=== PATIENT | male | born 1965 ===

== ENCOUNTER 2020-12-20 16:16 | Emergency (ER) | payer OTHER ==
[2020-12-20 17:05] VITALS: BP 146/88
[2020-12-20] MEDS ORDERED: ONDANSETRON 4 MG ODT TAB PO ONE (18:15)
[2020-12-20] MEDS ORDERED: ACETAMINOPHEN W/CODEINE 300-30 MG TAB PO ONE (18:15)
--- NOTE | 2020-12-20 18:17 | Emergency Department Report ---
ED Headache HPI - General Chief Complaint: Headache Stated Complaint: HEADACHE Time Seen by Provider: 12/20/20 17:56 Source: patient Exam Limitations: no limitations - History of Present Illness Initial Comments: 55-year-old male presents to the ER today with complaints of a headache. Patient states that he has been having a headache since around December 03. He states that the headache is mainly to the crown of his head. He states that it has been intermittent and sharp in nature. He denies any head injury. He reports mild associated nausea. He states that he has been taking Tylenol and ibuprofen which provides some relief of his headache but once the medicine wears off the headache comes back. Patient states that when he started with a headache, he also had symptoms of decreased appetite and decreased sense of taste and so he went to get a COVID-19 test around December 11. He states that he was notified on December 13 that he was COVID-19 positive. Patient states that he has been quarantining at home. He states that he still continues to have decreased appetite and decrease sense of taste but he feels like it is getting better but he states that the headache does not seem to want to go away and he is concerned. He denies any history of headaches. He denies any associated URI symptoms, cough, shortness of breath, vision changes, speech changes, focal neurological deficits, fever or chills. Patient states that the doctor who he saw the urgent care and diagnosed him with COVID-19 also started him on blood pressure medication because his blood pressure was high during the visit. He does not recall the name of the blood pressure medication that he takes. Other than the hypertension he has no other significant past history. Timing/Duration: constant, other (since December 03) Quality: moderate, constant, sharp Head Injury Location: other (crown of head ) Recent Head Trauma: no recent headache/trauma Allergies/Adverse Reactions: Allergies No Known Allergies Allergy (Unverified 12/20/20 17:05) Home Medications: Ambulatory Orders Acetaminophen/Codeine [Tylenol /Codeine # 3 tab] 1 tab PO Q4HR PRN #12 tablet 12/20/20 Ondansetron [Zofran Odt] 4 mg PO Q8HR PRN #15 tab.rapdis 12/20/20 ED Review of Systems ROS: Stated complaint: HEADACHE Other details as noted in HPI Comment: All other systems reviewed and negative Eyes: denies: eye pain, eye discharge, vision change ENT: denies: ear pain, throat pain, dental pain, hearing loss, congestion Respiratory: denies: cough, shortness of breath, wheezing Cardiovascular: denies: chest pain, palpitations Endocrine: no symptoms reported Gastrointestinal: nausea. denies: abdominal pain, vomiting, diarrhea, constipation, hematemesis Genitourinary: denies: urgency, dysuria, frequency, hematuria, discharge, testicular pain, testicular mass Musculoskeletal: denies: back pain, joint swelling, arthralgia Skin: denies: rash, lesions, change in color, change in hair/nails, pruritus, other Neurological: headache. denies: weakness, numbness, paresthesias, confusion, abnormal gait, vertigo Psychiatric: denies: anxiety, depression Hematological/Lymphatic: denies: easy bleeding, easy bruising ED Past Medical Hx - Past Medical History Previous Medical History?: No - Surgical History Past Surgical History?: No - Social History Smoking Status: Unknown if ever smoked - Medications Home Medications: Home Medications Medication Instructions Recorded Confirmed Last Taken Type Acetaminophen/Codeine [Tylenol 1 tab PO Q4HR PRN #12 tablet 12/20/20 Unknown Rx /Codeine # 3 tab] Ondansetron [Zofran Odt] 4 mg PO Q8HR PRN #15 tab.rapdis 12/20/20 Unknown Rx ED Physical Exam - General Limitations: No Limitations General appearance: alert, in no apparent distress, anxious - Head Head exam: Present: atraumatic, normocephalic, normal inspection - Eye Eye exam: Present: normal appearance, PERRL, EOMI Pupils: Present: normal accommodation - Neck Neck exam: Present: normal inspection, full ROM. Absent: meningismus - Respiratory Respiratory exam: Present: normal lung sounds bilaterally. Absent: respiratory distress - Cardiovascular Cardiovascular Exam: Present: regular rate, normal rhythm, normal heart sounds - Neurological Exam Neurological exam: Present: alert, oriented X3, CN II-XII intact, normal gait - Psychiatric Psychiatric exam: Present: normal affect, normal mood - Skin Skin exam: Present: intact ED Course Vital Signs 12/20/20 12/20/20 17:03 17:05 Temperature 88.5 F L 98.1 F Pulse Rate 93 H Respiratory 18 Rate Blood Pressure 146/88 O2 Sat by Pulse 97 Oximetry ED Medical Decision Making - Radiology Data Radiology results: report reviewed Patient: ZUNILDA MODI MR#: [id number] : 1965 Acct:[id number] Age/Sex: 55 / M ADM Date: 12/20/20 Loc: ED Attending Dr: Ordering Physician: AIDAN ARZOLA Date of Service: 12/20/20 Procedure(s): CT head/brain wo con Accession Number(s): [id number] cc: AIDAN ARZOLA CT head/brain wo con INDICATION / CLINICAL INFORMATION: 55 years Male; Headache. TECHNIQUE: Routine CT head without contrast. All CT scans at this location are performed using CT dose reduction for ALARA by means of automated exposure control. COMPARISON: None. FINDINGS: BRAIN / INTRACRANIAL CONTENTS: There is mild cerebral white matter disease most consistent with microvascular angiopathy. There is calcification involving the basal ganglia bilaterally without surrounding edema. The motion degrades the image quality. However, there is no clear CT evidence of acute intracranial hemorrhage or significant mass effect. The ventricular system is within normal limits in size and configuration. ORBITS: No significant abnormality of visualized orbits. SINUSES / MASTOIDS: No significant abnormality in the visualized paranasal sinuses or mastoid air cells. CRANIOCERVICAL JUNCTION: No significant abnormality. ADDITIONAL FINDINGS: None. IMPRESSION: 1. 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 Signer Name: Chance Waller MD Signed: 12/20/2020 6:58 PM Workstation Name: [id number] Transcribed By: MR Dictated By: Chance Waller MD Electronically Authenticated By: Chance Waller MD Signed Date/Time: 12/20/201857 DD/ 53 TD/TT: - Medical Decision Making 1910: Patient resting comfortably, he is not in any acute distress, he reports improvement of his headache after meds. He is awake, alert and oriented x3 and neurologically intact with normal gait. His VS stable. His head CT negative for anything acute. The repeat examination is unremarkable and benign. His headache could be related to COVID 19 virus at this time. His history, exam, diagnostic testing and the patient's current condition does not suggest meningitis, stroke, sepsis, subarachnoid hemorrhage, intracranial bleeding, encephalitis, temporal arteritis or other significant pathology to warrant further testing, continued ED treatment, admission, neurological consultation or other specialist evaluation at this point. Discussed CT results with patient. He states his boss wants him to come back to work but informed him if he is still symptomatic I recommend Recommend that he continues to quarantine for the 14 days. He can get a repeat COVID 19 test, if his boss is adamant that he returns to work but informed him that the COVID-19 test can still be positive for up to 3 months. Also recommend that he continues to take the blood pressure medication that he was started on recently and he should not stop it unless told by his PCP. Patient expressed understanding of instructions and agreed with plan. Patient was stable at time of discharge. Critical care attestation.: If time is entered above; I have spent that time in minutes in the direct care of this critically ill patient, excluding procedure time. ED Disposition Clinical Impression: Headache, COVID-19 Disposition: DC- TO HOME OR SELFCARE Is pt being admited?: No Does the pt Need Aspirin: No Condition: Stable Instructions: COVID-19 Frequently Asked Questions, General Headache Without Cause, COVID-19: How to Protect Yourself and Others - [facility] Additional Instructions: Take the pain medication as prescribed. You can either get a repeat COVID-19 test if your boss is adamant that she return to work but otherwise I recommend that you continue to quarantine for 14 days. Continue to take your blood pressure medication as prescribed. Follow-up with your primary care doctor. Return to the ER if your symptoms changes or worsens in any way. Prescriptions: Acetaminophen/Codeine [Tylenol /Codeine # 3 tab] 1 tab PO Q4HR PRN #12 tablet PRN Reason: Pain Ondansetron [Zofran Odt] 4 mg PO Q8HR PRN #15 tab.rapdis PRN Reason: Nausea Referrals: PRIMARY CARE,MD [Primary Care Provider] - 3-5 Days Forms: Work/School Release Form(ED) Time of Disposition: 19:20
--- NOTE | 2020-12-20 19:02 | Cat Scan Report ---
CT head/brain wo con INDICATION / CLINICAL INFORMATION: 55 years Male; Headache. TECHNIQUE: Routine CT head without contrast. All CT scans at this location are performed using CT dos e reduction for ALARA by means of automated exposure control. COMPARISON: None. FINDINGS: BRAIN / INTRACRANIAL CONTENTS: There is mild cerebral white matter disease most consistent with micro vascular angiopathy. There is calcification involving the basal ganglia bilaterally without surroundi ng edema. The motion degrades the image quality. However, there is no clear CT evidence of acute intr acranial hemorrhage or significant mass effect. The ventricular system is within normal limits in siz e and configuration. ORBITS: No significant abnormality of visualized orbits. SINUSES / MASTOIDS: No significant abnormality in the visualized paranasal sinuses or mastoid air joseph ls. CRANIOCERVICAL JUNCTION: No significant abnormality. ADDITIONAL FINDINGS: None. IMPRESSION: 1. 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 Signer Name: Chance Waller MD Signed: 12/20/2020 6:58 PM Workstation Name: [id number]
== END 2020-12-20 19:20 | disposition home or self-care (01) ==
LOC: ED 16:16
DX: U07.1 COVID-19 (principal); R51.9 Headache, unspecified; Z79.899 Other long term (current) drug therapy
CPT/HCPCS: 70450; Q0162

== ENCOUNTER 2022-04-18 16:43 | Emergency (ER) | payer OTHER ==
--- NOTE | 2022-04-18 20:23 | Emergency Department Report ---
ED Extremity Problem HPI - General Chief complaint: Extremity Injury, Lower Stated complaint: RIGHT TOE PAIN Time Seen by Provider: 04/18/22 20:16 Source: patient Mode of arrival: Ambulatory Limitations: No Limitations - History of Present Illness Initial comments: 56-year-old -[place] male presents to the emergency department emerged from complaining of pain to the right toenail after accidentally striking it on a hard object causing a partial toenail avulsion and pain. He is worried by an infection but because he saw some discoloration to the toenail. Injury occurred about 2 weeks ago the pain has his hand has resolved reports no swelling no wound discharge no bleeding no numbness no tingling. -: Sudden Location: right, other (Hallux) Radiation: none Severity scale (0 -10): 1 Quality: aching, dull Consistency: constant Improves with: nothing Worsens with: nothing Associated Symptoms: denies other symptoms - Related Data Previous Rx's Medication Instructions Recorded Last Taken Type Acetaminophen/Codeine [Tylenol 1 tab PO Q4HR PRN #12 tablet 12/20/20 Unknown Rx /Codeine # 3 tab] Ondansetron [Zofran Odt] 4 mg PO Q8HR PRN #15 tab.rapdis 12/20/20 Unknown Rx Allergies Allergy/AdvReac Type Severity Reaction Status Date / Time No Known Allergies Allergy Verified 04/18/22 17:36 ED Review of Systems ROS: Stated complaint: RIGHT TOE PAIN Other details as noted in HPI Comment: All other systems reviewed and negative ED Past Medical Hx - Social History Smoking Status: Unknown if ever smoked - Medications Home Medications: Home Medications Medication Instructions Recorded Confirmed Last Taken Type Acetaminophen/Codeine [Tylenol 1 tab PO Q4HR PRN #12 tablet 12/20/20 Unknown Rx /Codeine # 3 tab] Ondansetron [Zofran Odt] 4 mg PO Q8HR PRN #15 tab.rapdis 12/20/20 Unknown Rx ED Physical Exam - General Limitations: No Limitations General appearance: alert, in no apparent distress - Head Head exam: Present: atraumatic, normocephalic - Eye Eye exam: Present: normal appearance, PERRL, EOMI Pupils: Present: normal accommodation - ENT ENT exam: Present: normal exam, mucous membranes moist, TM's normal bilaterally - Neck Neck exam: Present: normal inspection, full ROM - Respiratory Respiratory exam: Present: normal lung sounds bilaterally. Absent: respiratory distress - Cardiovascular Cardiovascular Exam: Present: regular rate, normal rhythm. Absent: systolic murmur, diastolic murmur, rubs, gallop - GI/Abdominal GI/Abdominal exam: Present: soft, normal bowel sounds - Rectal Rectal exam: Present: deferred - Extremities Exam Extremities exam: Present: normal inspection, tenderness, normal capillary refill, other (Right hallux toenail partial avulsion with minimal movement. Some discoloration to the toenail old healing subungual hematoma is present. No obvious trauma to the nail matrix) - Back Exam Back exam: Present: normal inspection. Absent: CVA tenderness (R), CVA tenderness (L) - Neurological Exam Neurological exam: Present: alert, oriented X3 - Psychiatric Psychiatric exam: Present: normal affect, normal mood - Skin Skin exam: Present: warm, dry, intact, normal color. Absent: rash ED Course Vital Signs 04/18/22 17:32 Temperature 98.6 F Pulse Rate 89 Respiratory 18 Rate Blood Pressure 175/93 [Right] O2 Sat by Pulse 100 Oximetry ED Medical Decision Making - Medical Decision Making 48-year-old male presents emerged department complaining of toenail injury with a which initially had a partial avulsion and subungual hematoma which appears to be healing at this present time. The toenail has minimal movement appears to be stable at this warm on with hematoma appears to be resolving and pain is a 0 of 10. No evidence of any cellulitis no swelling to the hallux as well. No calf pain or numbness noted Critical care attestation.: If time is entered above; I have spent that time in minutes in the direct care of this critically ill patient, excluding procedure time. ED Disposition Clinical Impression: Toenail fungus, Toenail avulsion Disposition: HOME / SELF CARE / HOMELESS Is pt being admited?: No Does the pt Need Aspirin: No Condition: Stable Instructions: Nail Avulsion, Fungal Nail Infection, Wound Care, Adult, Sutured Wound Care Additional Instructions: Please get some [id number] toenail fungus medication and follow-up to primary care provider to further treat your toenail fungus please refrain from further avulsion of the toenail which would produce more injury and increased c kendra of infection Referrals: [facility] [Provider Group] - 3-5 Days
[2022-04-18 20:34] VITALS: BP 171/88
== END 2022-04-20 10:48 | disposition home or self-care (01) ==
LOC: ED 16:43
DX: B35.1 Tinea unguium (principal); S91.209A Unspecified open wound of unspecified toe(s) with damage to nail, initial encounter; X58.XXXA Exposure to other specified factors, initial encounter; Y93.89 Activity, other specified; Y92.89 Other specified places as the place of occurrence of the external cause; Y99.8 Other external cause status
CPT/HCPCS: 99282